=== PATIENT | female | born 1960 | race Caucasian/White ===

== ENCOUNTER 2022-07-03 07:51 | Outpatient (CLI) | payer BC ==
[2022-07-03] MEDS ORDERED: Iopamidol 300 61% 100 ML VIAL FS ONE (09:40)
== END 2022-07-03 07:52 | disposition home or self-care (01) ==
LOC: CSHCT 07:51
PROVIDERS: ATTEND Internal Medicine Gastroenterology
DX: K52.9 Noninfective gastroenteritis and colitis, unspecified (principal); K50.10 Crohn's disease of large intestine without complications; R19.7 Diarrhea, unspecified; R10.11 Right upper quadrant pain; R11.10 Vomiting, unspecified; K62.89 Other specified diseases of anus and rectum; K44.9 Diaphragmatic hernia without obstruction or gangrene
CPT/HCPCS: 74177; 82565; Q9967

== ENCOUNTER 2022-09-03 07:38 | Outpatient (CLI) | payer BC | END 2022-09-03 07:39 | disposition home or self-care (01) | LOC: CSHRAD 07:38 | PROVIDERS: ATTEND Surgery | DX: K44.9 Diaphragmatic hernia without obstruction or gangrene (principal) | CPT/HCPCS: 74220 ==